=== PATIENT | male | born 1980 | race Caucasian/White ===

== ENCOUNTER → 2018-09-08 12:24 | Outpatient (CLI) | payer OTHER | END | disposition home or self-care (01) | LOC: LAB 12:24 | DX: E04.8 Other specified nontoxic goiter (principal); D75.1 Secondary polycythemia; D51.8 Other vitamin B12 deficiency anemias; D51.0 Vitamin B12 deficiency anemia due to intrinsic factor deficiency; D51.1 Vitamin B12 deficiency anemia due to selective vitamin B12 malabsorption with proteinuria; I10 Essential (primary) hypertension; K90.89 Other intestinal malabsorption; E72.11 Homocystinuria; E72.12 Methylenetetrahydrofolate reductase deficiency ==